=== PATIENT | female | born 1990 | race Caucasian/White ===

== ENCOUNTER 2018-03-08 05:16 | Day surgery (SDC) | payer OTHER ==
[~2018-03-08] VITALS: Ht 149.9 cm; Wt 73.5 kg
[~2018-03-08 05:16] MED LIST: ASPI-964 PO; HYDR-4001 PO
[2018-03-08] MEDS ORDERED: LACTATED RINGERS 1,000 ML IV SCH (05:45)
[2018-03-08] MEDS ORDERED: INDOCYANINE GREEN 25 MG VIAL IV ONE (05:47)
[2018-03-08] MEDS ORDERED: BUPIVACAINE HCL/PF 0.5% (5MG/ML) 10ML ONE ×2 (05:47→05:48)
[2018-03-08] MEDS ORDERED: SKIN ADHESIVE 0.7 GM EA TOP ONE (05:48)
[2018-03-08 06:30] LABS: CLARITY URINE CLOUDY (CLEAR); COLOR URINE YELLOW (YELLOW); KETONES URINE TRACE (NEGATIVE); LEUKOCYTE ESTERASE URINE TRACE (NEGATIVE); NITRITE URINE NEGATIVE (NEGATIVE); OCCULT BLOOD URINE NEGATIVE (NEGATIVE); PH URINE 6.5 (4.5-8.0); PROTEIN URINE NEGATIVE (NEGATIVE); SPECIFIC GRAVITY URINE 1.026 (1.005-1.030)
[2018-03-08 06:43] LABS: UCG SCREEN NEGATIVE
[2018-03-08] MEDS ORDERED: ONDA4TAB50 PO (06:58)
[2018-03-08] MEDS ORDERED: NEOSTIGMINE METHYLSULFATE 1MG/ML 10 ML VIAL ONE (07:03)
[2018-03-08] MEDS ORDERED: DEXAMETHASONE 4MG/ML 1ML VIAL ONE (07:03)
[2018-03-08] MEDS ORDERED: PROPOFOL 200MG/20ML VIAL IV ONE (07:03)
[2018-03-08] MEDS ORDERED: GLYCOPYRROLATE 0.2 MG/ML 2ML VIAL ONE (07:03)
[2018-03-08] MEDS ORDERED: ROCURONIUM BROMIDE 10MG/ML VIAL 5ML IV ONE (07:03)
[2018-03-08] MEDS ORDERED: FENTANYL CITRATE/PF 50MCG/ML 2ML VIAL ONE (07:03)
[2018-03-08] MEDS ORDERED: MIDAZOLAM HCL 2 MG/2 ML VIAL ONE (07:03)
[2018-03-08] MEDS ORDERED: ONDANSETRON HCL 4MG/2ML INJ ONE (07:04)
[2018-03-08] MEDS ORDERED: LIDOCAINE HCL/PF 1% 10 MG/ML 5ML VIAL ONE (07:37)
[2018-03-08] MEDS ORDERED: SODIUM CHLORIDE 0.9% 10ML VIAL ONE (07:37)
[2018-03-08] MEDS ORDERED: CEFAZOLIN SODIUM 1000MG/VIAL ONE (07:37)
[2018-03-08] MEDS ORDERED: MEPERIDINE HCL/PF 25MG/ML CPJ IV PRN (07:45)
[2018-03-08] MEDS ORDERED: LABETALOL 5MG/ML SYR 20 MG/4 ML SYRINGE IV PRN (07:45)
[2018-03-08] MEDS: HYDROMORPHONE HCL/PF 2MG/ML CPJ IV PRN ×2 (09:53→10:00)
[2018-03-08] MEDS: ONDANSETRON HCL 4MG/2ML INJ IV PRN ×2 (09:55→10:44)
[2018-03-08 10:00] VITALS: BP 102/66
== END 2018-03-08 10:55 | disposition home or self-care (01) ==
LOC: OR 05:16
PROVIDERS: ATTEND Surgery
DX: K80.10 Calculus of gallbladder with chronic cholecystitis without obstruction (principal); E78.00 Pure hypercholesterolemia, unspecified; K21.9 Gastro-esophageal reflux disease without esophagitis; Z79.899 Other long term (current) drug therapy; Z79.82 Long term (current) use of aspirin
CPT/HCPCS: 47562; 81003; 81025; 88304; A4216; G0168; J0690; J1100; J1170; J2175; J2250; J2405; J2710; J3010; J3490; J7120; Q9957; J2704